=== PATIENT | male | born 1995 ===

== ENCOUNTER 2021-12-19 20:39 | Emergency (ER) | payer OTHER | END 2021-12-19 22:31 | disposition home or self-care (01) | LOC: DL.ED 20:39 | DX: T33.531A Superficial frostbite of right finger(s), initial encounter (principal); Z72.0 Tobacco use; X31.XXXA Exposure to excessive natural cold, initial encounter | CPT/HCPCS: 99283 ==

== ENCOUNTER 2022-08-12 04:45 | Emergency (ER) | payer OTHER ==
[2022-08-12] MEDS ORDERED: Bacitracin Oint 1 GM U/D Packet TOP ONE (05:00)
[2022-08-12] MEDS ORDERED: Lidocaine 1% 10 ML MDV INJECT ONE (05:00)
== END 2022-08-12 05:31 | disposition home or self-care (01) ==
LOC: DL.ED 04:45
DX: S01.112A Laceration without foreign body of left eyelid and periocular area, initial encounter (principal); Y08.89XA Assault by other specified means, initial encounter
CPT/HCPCS: 12011; 99282

== ENCOUNTER 2023-04-16 05:10 | Emergency (ER) | payer OTHER, BC | END 2023-04-16 06:00 | disposition home or self-care (01) | LOC: DL.ED 05:10 | DX: S41.151A Open bite of right upper arm, initial encounter (principal); E66.9 Obesity, unspecified; F17.290 Nicotine dependence, other tobacco product, uncomplicated; F17.220 Nicotine dependence, chewing tobacco, uncomplicated; Y04.1XXA Assault by human bite, initial encounter | CPT/HCPCS: 99283 ==

== ENCOUNTER 2024-06-15 08:54 | Emergency (ER) | payer BC ==
[2024-06-15] MEDS: Ketorolac 30 MG/ML SDV IM ONE (10:00)
== END 2024-06-15 10:04 | disposition home or self-care (01) ==
LOC: DL.ED 08:54
DX: S63.501A Unspecified sprain of right wrist, initial encounter (principal); S43.401A Unspecified sprain of right shoulder joint, initial encounter; R51.9 Headache, unspecified; E66.9 Obesity, unspecified; Z68.32 Body mass index [BMI] 32.0-32.9, adult; Y04.8XXA Assault by other bodily force, initial encounter
CPT/HCPCS: 73030; 73110; 73130; 96372; 99284; J1885

== ENCOUNTER 2024-11-14 16:06 | Emergency (ER) | payer BC ==
[2024-11-14] MEDS: Ketorolac 30 MG/ML SDV IM ONE (16:51)
[2024-11-14] MEDS: Orphenadrine 60 MG/2 ML Inj IM ONE (16:51)
[2024-11-14] MEDS: HYDROmorphone 1 MG/ML Syringe IM ONE (17:48)
[2024-11-14] MEDS: Take Home: Acetaminophen/oxyCODONE 325-5 MG, 5 Tab Pack PO ONE (19:02)
[2024-11-14] MEDS: Take Home: Cyclobenzaprine 10 MG Tab, 4 Tab Pack PO ONE (19:02)
== END 2024-11-14 19:12 | disposition home or self-care (01) ==
LOC: DL.ED 16:06
DX: M51.369 Other intervertebral disc degeneration, lumbar region without mention of lumbar back pain or lower extremity pain (principal); E66.9 Obesity, unspecified
CPT/HCPCS: 72128; 72131; 96372; 99283; A9270; J1171; J1885; J2360